=== PATIENT | male | born 2000 | race Caucasian/White ===

== ENCOUNTER 2022-01-17 07:53 | Outpatient (RCR) | payer OTHER, SELFPAY ==
--- NOTE | 2022-01-17 09:02 | PTOPEVAL ---
Thank you for referring Vincent Kahn to [facility].? The patient is scheduled to be seen for therapy? ____x/week for ___ weeks. Please review, sign, date and return this plan of care VIANEY. I agree with and certify that the following plan of care is medically necessary. Referring Physician Date Admitting Provider: Attending Provider: Kristy Pagan, STRAIGHT CUTTER MACHINE Referring Provider: *PT Outpatient Evaluation Start: 01/17/22 07:50 Freq: Status: Active Protocol: Document 01/17/22 07:50 ACR (Rec: 01/17/22 09:02 ACR [id number]) Therapy Assessment Status Assessment Status Assessment Status Evaluation Evaluation Information Problem Diagnosis Bilateral francois pain Onset 07/15/21 Subjective Information Patient states that he enjoys Query Text:As Reported By Patient/ to run and was on his feet all Family day then decided to run and his shins started to bother him. He states that now when he walks or runs his shins bother him. Patient states that when he runs he only runs about a mile. Patient states that he has insoles for his shoes to help him from overpronating his feet an has had francois splints before, but they went away. 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 Patient states that his goal for therapy is to be able to run again without pain. Prior Level of Function Activity Level (Last 3 Months) Occupation student Hand Dominance Right Activity of Daily Living Ability Independent Indoor/Home Mobility Independent Community Mobility Independent Stairs Ability Independent Functional Cognition (Planning, Shopping Independent , Taking Medications) Cooking Yes Cleaning Yes Laundry Yes Shopping Yes Driving Yes Pain Assessment Timing of Pain Assessment Timing of Pain Assessment Assessment Pain Scale Pain Scale Used Numeric (1 - 10) Self Report Pain Assessment Right Francois(s) Reported Pain Level 1 Pain Description Sharp Greatest Pain Intensity 3 Left Francois(s) Reported Pain Level
== END 2022-02-22 09:37 | disposition home or self-care (01) ==
LOC: CHSPT 07:53
PROVIDERS: Visit Provider Nurse Practitioner Family
DX: M89.8X6 Other specified disorders of bone, lower leg (principal); M79.662 Pain in left lower leg; M79.661 Pain in right lower leg
CPT/HCPCS: 97110; 97140; 97161; 97530

== ENCOUNTER 2022-04-28 12:05 | Outpatient (CLI) | payer OTHER, SELFPAY ==
--- NOTE | ~2022-04-28 | MR_ITS ---
EXAMINATION: MR lower leg BI wo con DATE: 04/28/2022 13:56 INDICATION: Right and left francois pain. TECHNIQUE: Magnetic resonance imaging (MRI) of the lower legs was performed without intravenous contr ast. COMPARISON: Right and left tibia and fibula radiographs 01/11/2022 FINDINGS: Bone alignment is normal. The right tibia demonstrates endosteal edema of the midshaft jocelin acterized by increased T2-weighted signal intensity and normal T1-weighted signal intensity. No abnor mal cortical signal. There is periosteal edema in this area and mild subcutaneous edema overlying thi s area. The left tibia demonstrates normal marrow signal intensity. There is periosteal edema at the mid shaf t width mild overlying subcutaneous edema. IMPRESSION: 1. Right-sided medial tibial stress syndrome, [place] grade 2. 2. Left-sided medial tibial stress syndrome, [place] grade 1. Reviewed, dictated and finalized at location A.
== END 2022-04-28 12:06 | disposition home or self-care (01) ==
LOC: ANHIMG 12:07
PROVIDERS: PCP Family Medicine; Visit Provider Orthopaedic Surgery
DX: M76.821 Posterior tibial tendinitis, right leg (principal); M76.822 Posterior tibial tendinitis, left leg
CPT/HCPCS: 73718